=== PATIENT | female | born 1930 | race Caucasian/White ===

== ENCOUNTER 2016-05-01 08:18 | Emergency (ER) | payer MEDICARE, OTHER ==
[~2016-05-01] VITALS: Ht 157.5 cm; Wt 72.6 kg
[~2016-05-01 08:18] MED LIST: ACET-2605 PO; ALBU6.7H INH; AMIO200T2 PO; ATOR80TA PO; AZEL205. BNOSTRILS; BENA10TA2 PO; BISA10SU8 RC; CLOP75TA2 PO; DULO30CA51 PO; FERR-58 PO; FURO20TA4 PO; GUAI5SYR PO; HYDR200T4 PO; MAGN400O6 PO; ONDA-25 PO; PANT40TA4 PO; PRED5TAB PO; PREG150C PO; TRAM50TA2 PO
[2016-05-01 11:39] VITALS: BP 126/50
== END 2016-05-01 11:39 | disposition home or self-care (01) ==
LOC: ER 08:20
DX: S09.90XA Unspecified injury of head, initial encounter (principal); I25.10 Atherosclerotic heart disease of native coronary artery without angina pectoris; I10 Essential (primary) hypertension; M54.2 Cervicalgia; M35.3 Polymyalgia rheumatica; R51 Headache; Z88.2 Allergy status to sulfonamides; Z86.73 Personal history of transient ischemic attack (TIA), and cerebral infarction without residual deficits; Z88.1 Allergy status to other antibiotic agents; Z88.8 Allergy status to other drugs, medicaments and biological substances; W07.XXXA Fall from chair, initial encounter; Y93.89 Activity, other specified; Y92.9 Unspecified place or not applicable; Y99.9 Unspecified external cause status
CPT/HCPCS: 70450; 72125; 99284; A4606; Z7610